=== PATIENT | male | born 1980 | race Caucasian/White ===

== ENCOUNTER 2018-01-16 16:46 | Emergency (ER) | payer OTHER ==
[~2018-01-16] VITALS: Ht 187.9 cm; Wt 102.1 kg
[~2018-01-16 16:46] MED LIST: ACIPHEX20 MG PO; AMOXICILLIN500 MG PO; AMOXIL500 MG PO; CLEOCIN HCL150 MG PO; CLEOCIN150 MG PO; CLINDAMYCIN HC300 MG PO; EES400 MG PO; HYDROCODONE BIT1 T11 PO; IBUPROFEN; MOTRIN800 MG PO; SEROQUEL100 MG PO; TRAMADOL HCL50 MG PO; TRIMOX500 MG PO; TYLENOL; VICODIN ES 7501 TAB PO; XANAX1 MG PO
== END 2018-01-16 18:53 | disposition home or self-care (01) ==
LOC: ED 16:46
DX: F41.9 Anxiety disorder, unspecified (principal); F17.200 Nicotine dependence, unspecified, uncomplicated

== ENCOUNTER 2018-02-27 12:21 | Emergency (ER) | payer OTHER ==
[~2018-02-27] VITALS: Ht 187.9 cm; Wt 104.3 kg
[2018-02-27] MEDS ORDERED: NAPROSYN500 MG PO (12:31)
[2018-02-27] MEDS ORDERED: KEFLEX500 M1 PO (12:31)
== END 2018-02-27 14:38 | disposition home or self-care (01) ==
LOC: ED 12:21
DX: S01.01XA Laceration without foreign body of scalp, initial encounter (principal); W22.8XXA Striking against or struck by other objects, initial encounter; Y93.89 Activity, other specified; Y92.89 Other specified places as the place of occurrence of the external cause; Y99.8 Other external cause status

== ENCOUNTER 2018-07-21 23:21 | Emergency (ER) | payer OTHER ==
[~2018-07-21] VITALS: Ht 185.4 cm; Wt 97.5 kg
[~2018-07-21 23:21] MED LIST changes: +KEFLEX500 M1 PO; +NAPROSYN500 MG PO
[2018-07-21 23:58] LABS: BASO # 0.1 10*3/uL (0.0-0.1); BASO % 0.2 % (0.0-1.0); HEMOGLOBIN 14.6 g/dl (14.0-18.0); LYMPH % 13.5 % (27.0-41.0); MEAN CELL VOLUME 90.1 fl (80.0-94.0); MEAN CORPUSCULAR HGB 31.3 pg (27.0-31.0); MEAN CORPUSCULAR HGB CONC 34.8 g/dl (33.0-37.0); MEAN PLATELET VOLUME 10.8 fl (9.6-12.3); MONO # 0.9 10*3/uL (0.1-1.0); MONO % 4.2 % (3.0-9.0); NEUT # 18.2 10*3/uL (2.3-7.9); NEUT % 81.7 % (47.0-73.0); PLATELET COUNT AUTOMATED 315 10*3/uL (130-400); RED BLOOD COUNT 4.66 10*6/uL (4.50-5.90); RED CELL DISTRI WIDTH 11.9 % (0-14.5); WHITE BLOOD COUNT 22.3 10*3/uL (4.8-10.8)
[2018-07-22 00:14] LABS: ALBUMIN 3.4 gm/dl (3.1-4.5); ALKALINE PHOSPHATASE 67 U/L (45-117); BUN 11 mg/dl (7-24); CHLORIDE 109 mmol/L (98-107); CREATININE 1.14 mg/dL (0.70-1.30); LIPASE 87 U/L (73-393); SGOT/AST 23 IU/L (3-35); SGPT/ALT 41 U/L (12-78); SODIUM 139 mmol/L (136-145); TOTAL PROTEIN 7.4 gm/dL (6.4-8.2)
[2018-07-22 00:50] LABS: BILIRUBIN 1+ (NEGATIVE); BLOOD 1+ (NEGATIVE); CLARITY SL CLOUDY (CLEAR); COLOR YELLOW (YELLOW); GLUCOSE NEGATIVE (NEGATIVE); KETONE 1+ (NEGATIVE); LEUKO ESTERASE NEGATIVE (NEGATIVE); NITRITE NEGATIVE (NEGATIVE); SPECIFIC GRAVITY 1.015 (1.005-1.030); UROBILINOGEN 0.2 E.U./dl (0.2-1.0)
[2018-07-22 01:16] LABS: EPITHELIAL CELLS 0-2; WBC 0-2 wbc/hpf (0-5)
[2018-07-22 01:17] LABS: BACTERIA 1+; MUCOUS TRACE
== END 2018-07-22 02:25 | disposition short-term general hospital (02) ==
LOC: ED 23:21
PROVIDERS: Emergency Medicine Emergency Medical Services
DX: N13.2 Hydronephrosis with renal and ureteral calculous obstruction (principal); N13.4 Hydroureter

== ENCOUNTER 2018-11-07 19:56 | Inpatient (IN) | payer OTHER ==
[~2018-11-07] VITALS: Ht 187.9 cm; Wt 97.2 kg
--- NOTE | ~2018-11-07 | EKG ---
[place], [place] ELECTROCARDIOGRAM REPORT NAME: DIANA OAKLEY II UNIT #: [id number] ROOM: 512 DOCTOR: IMANI DRAFT REPORT BIRTHDATE: [birth year] [facility] Test Date: 2018-11-07 Test Time: 23:36:02 Pat Name: DIANA OAKLEY Department: Room: 512 Gender: M Educational Adviser: BLAS : 1980 Requested By: MARIA T SIMON PA-C Order Number: [id number] Reading MD: Marciano Mojica MD Measurements Intervals [place] Rate: 74 P: 49 SD: 144 QRS: 10 QRSD: 110 T: 29 QT: 385 QTc: 428 Interpretive Statements Sinus rhythm Probable left ventricular hypertrophy Electronically Signed On 11-08-2018 8:10:23 PDT by Marciano Mojica MD CM:EKGRPT:ELECTROCARDIOGRAM REPORT [id number] MARIA T SIMON PA-C EPIPHANY DRAFT REPORT MARIA T SIMON PA-C
[2018-11-07 19:56] VITALS: BP 149/108
[2018-11-07 20:27] LABS: HEMOGLOBIN 14.3 g/dl (14.0-18.0); MEAN CELL VOLUME 93.5 fl (80.0-94.0); MEAN CORPUSCULAR HGB 31.8 pg (27.0-31.0); MEAN PLATELET VOLUME 10.1 fl (9.6-12.3); PLATELET COUNT AUTOMATED 397 10*3/uL (130-400); RED BLOOD COUNT 4.49 10*6/uL (4.50-5.90); RED CELL DISTRI WIDTH 12.8 % (0-14.5); WHITE BLOOD COUNT 21.4 10*3/uL (4.8-10.8)
[2018-11-07 20:36] VITALS: BP 147/80
[2018-11-07 20:48] LABS: PLATELET SUFFICIENCY NORMAL (NORMAL); TOTAL CELLS COUNTED 100 #CELLS
[2018-11-07 20:54] LABS: BILIRUBIN NEGATIVE (NEGATIVE); BLOOD NEGATIVE (NEGATIVE); CLARITY CLEAR (CLEAR); COLOR YELLOW (YELLOW); GLUCOSE NEGATIVE (NEGATIVE); KETONE NEGATIVE (NEGATIVE); LEUKO ESTERASE NEGATIVE (NEGATIVE); NITRITE NEGATIVE (NEGATIVE); PH 5.5 (5.0-9.0); SPECIFIC GRAVITY >= 1.030 (1.005-1.030); UROBILINOGEN 0.2 E.U./dl (0.2-1.0)
[2018-11-07 21:00] LABS: MUCOUS TRACE; RBC 0-2 rbc/hpf (0-2); WBC 0-2 wbc/hpf (0-5)
[2018-11-07 21:04] LABS: URINE AMPHETAMINES < 1000 (1000ng/ml); URINE BARBITURATES < 200 (200ng/ml); URINE BENZODIAZEPINES > 200 (200ng/ml); URINE CANNABINOIDS (THC) > 50 (50ng/ml); URINE COCAINE > 300 (300ng/ml); URINE METHADONE < 300 (300ng/ml); URINE OPIATES > 300 (300ng/ml); URINE PHENCYCLIDINE < 25 (25ng/ml)
[2018-11-07 21:36] LABS: ALBUMIN 3.4 gm/dl (3.1-4.5); ALKALINE PHOSPHATASE 73 U/L (45-117); BUN 9 mg/dl (7-24); CHLORIDE 104 mmol/L (98-107); CREATININE 1.06 mg/dL (0.70-1.30); LIPASE 62 U/L (73-393); POTASSIUM 3.6 mmol/L (3.5-5.1); SGOT/AST 15 IU/L (3-35); SGPT/ALT 33 U/L (12-78); SODIUM 138 mmol/L (136-145); TOTAL PROTEIN 7.7 gm/dL (6.4-8.2)
--- NOTE | 2018-11-07 22:03 | NUR ---
PT TO CT SCAN
--- NOTE | 2018-11-07 22:24 | NUR ---
REPORT FROM [facility] AT THIS TIME.PT ALERT,TALKING TO FAMILY/FRIEND IN ROOM.---BARBARA COSBY RN
[2018-11-07 22:59] VITALS: BP 132/74
[2018-11-08 00:03] VITALS: BP 119/66
[2018-11-08 00:48] LABS: TROPONIN I < 0.015 ng/ml (<0.045)
[2018-11-08 02:44] VITALS: BP 138/86
[2018-11-08 03:05] VITALS: BP 142/88
--- NOTE | 2018-11-08 03:05 | NUR ---
A 38, admitted to , under the services of SONYA De La Rosa MD with a diagnosis of PLEURAL EFFUSION. Chief complaint is LEFT FLANK/RIB PAIN STARTING 11/07 1000. Patient arrived via bed from ER. Monitor applied. Initial assessment completed. Vital signs taken and recorded. SONYA DE LA ROSA MD notified of admission to the unit. Orders received. See assessment for past medical history, medications and allergies. Patient and/or family oriented to unit. [facility] visitation policy reviewed. Clothing/patient valuable form completed. DANELLE GRUBER
--- NOTE | 2018-11-08 03:50 | NUR ---
DR NEGRON CONTACTED, ADMISSION ORDERS RECEIVED
--- NOTE | 2018-11-08 06:02 | NUR ---
c/o left flank/rib pain rating a 10. medciated with toradol per prn order. call light within reach. will monitor for effectiveness
[2018-11-08 08:00] VITALS: BP 123/83
[2018-11-08 12:00] VITALS: BP 151/93
[2018-11-08 16:00] VITALS: BP 151/87
--- NOTE | 2018-11-08 17:23 | NUR ---
PT LEFT AMA
== END 2018-11-08 17:23 | disposition left against medical advice (07) | DRG 694 ==
LOC: ED 19:56 → EDHOLD 11-08 01:20 → 5E 11-08 01:20
PROVIDERS: Physician Assistant; ADMIT Internal Medicine
DX: N13.2 Hydronephrosis with renal and ureteral calculous obstruction (principal); J90 Pleural effusion, not elsewhere classified; R65.10 Systemic inflammatory response syndrome (SIRS) of non-infectious origin without acute organ dysfunction; J98.11 Atelectasis; Z53.21 Procedure and treatment not carried out due to patient leaving prior to being seen by health care provider; R10.12 Left upper quadrant pain; D72.810 Lymphocytopenia; D72.9 Disorder of white blood cells, unspecified; F41.9 Anxiety disorder, unspecified; I10 Essential (primary) hypertension; F17.210 Nicotine dependence, cigarettes, uncomplicated; F11.10 Opioid abuse, uncomplicated; F13.10 Sedative, hypnotic or anxiolytic abuse, uncomplicated; F12.10 Cannabis abuse, uncomplicated; F14.10 Cocaine abuse, uncomplicated; R73.9 Hyperglycemia, unspecified; Z71.6 Tobacco abuse counseling; Z87.442 Personal history of urinary calculi; Z82.49 Family history of ischemic heart disease and other diseases of the circulatory system

== ENCOUNTER 2019-05-12 15:01 | Emergency (ER) | payer OTHER ==
[~2019-05-12] VITALS: Wt 104.3 kg
== END 2019-05-12 16:47 | disposition left against medical advice (07) ==
LOC: ED 15:01
DX: T40.2X1A Poisoning by other opioids, accidental (unintentional), initial encounter (principal); R11.10 Vomiting, unspecified; R40.0 Somnolence; I10 Essential (primary) hypertension; F14.10 Cocaine abuse, uncomplicated; F12.10 Cannabis abuse, uncomplicated; F11.10 Opioid abuse, uncomplicated; F17.210 Nicotine dependence, cigarettes, uncomplicated; Y92.098 Other place in other non-institutional residence as the place of occurrence of the external cause

== ENCOUNTER 2020-09-10 10:58 | Emergency (ER) | payer OTHER ==
[~2020-09-10] VITALS: Ht 187.9 cm; Wt 104.3 kg
[2020-09-10] MEDS ORDERED: AUGMENTIN 875875 MG PO (11:30)
[2020-09-10] MEDS ORDERED: IBUPROFEN600 MG PO (11:30)
== END 2020-09-10 12:05 | disposition home or self-care (01) ==
LOC: ED 10:58
DX: K08.89 Other specified disorders of teeth and supporting structures (principal); F17.200 Nicotine dependence, unspecified, uncomplicated

== ENCOUNTER 2022-07-09 18:16 | Emergency (ER) | payer OTHER ==
[~2022-07-09] VITALS: Ht 187.9 cm; Wt 104.3 kg
[~2022-07-09 18:16] MED LIST changes: +AUGMENTIN 875875 MG PO; +IBUPROFEN600 MG PO
== END 2022-07-09 21:00 | disposition home or self-care (01) ==
LOC: ED 18:16
DX: J06.9 Acute upper respiratory infection, unspecified (principal); Z87.891 Personal history of nicotine dependence

== ENCOUNTER 2022-07-12 13:37 | Emergency (ER) | payer OTHER ==
[~2022-07-12] VITALS: Ht 187.9 cm; Wt 104.3 kg
[2022-07-12] MEDS ORDERED: SUBOXONE 8 MG-1 EACH SL (17:13)
[2022-07-12] MEDS ORDERED: BUSPIRONE10 MG PO (17:14)
[2022-07-12] MEDS ORDERED: ZESTRIL,PRINIVIL5 MG PO (17:14)
[2022-07-12 17:35] LABS: BASO % 0.2 % (0.0-1.0); HEMATOCRIT 45.3 % (42.0-52.0); LYMPH # 2.5 10*3/uL (1.3-4.4); LYMPH % 11.4 % (27.0-41.0); MEAN CELL VOLUME 92.1 fl (80.0-94.0); MEAN CORPUSCULAR HGB 31.5 pg (27.0-31.0); MEAN CORPUSCULAR HGB CONC 34.2 g/dl (33.0-37.0); MEAN PLATELET VOLUME 11.1 fl (9.6-12.3); MONO # 0.6 10*3/uL (0.1-1.0); MONO % 2.7 % (3.0-9.0); NEUT # 18.6 10*3/uL (2.3-7.9); PLATELET COUNT AUTOMATED 265 10*3/uL (130-400); RED BLOOD COUNT 4.92 10*6/uL (4.50-5.90); RED CELL DISTRI WIDTH 12.1 % (0-14.5); WHITE BLOOD COUNT 21.9 10*3/uL (4.8-10.8)
[2022-07-12 17:53] LABS: ALKALINE PHOSPHATASE 59 U/L (46-116); BUN 6 mg/dl (9-23); CHLORIDE 104 mmol/L (98-107); CREATININE 0.84 mg/dL (0.70-1.30); POTASSIUM 3.8 mmol/L (3.4-5.1); SGPT/ALT 14 U/L (10-49); SODIUM 139 mmol/L (136-145); TOTAL PROTEIN 8.4 gm/dL (6.0-8.0)
[2022-07-12] MEDS ORDERED: AMOX-CLAV 875-1 EACH PO (21:05)
== END 2022-07-12 21:45 | disposition home or self-care (01) ==
LOC: ED 13:37
PROVIDERS: Emergency Medicine
DX: J03.90 Acute tonsillitis, unspecified (principal); J32.8 Other chronic sinusitis; Z79.899 Other long term (current) drug therapy; Z87.891 Personal history of nicotine dependence

== ENCOUNTER 2023-11-22 20:38 | Emergency (ER) | payer SELFPAY ==
[~2023-11-22] VITALS: Ht 187.9 cm; Wt 98.0 kg
[~2023-11-22 20:38] MED LIST changes: +AMOX-CLAV 875-1 EACH PO; +BUSPIRONE10 MG PO; +SUBOXONE 8 MG-1 EACH SL; +ZESTRIL,PRINIVIL5 MG PO
[2023-11-22 21:27] LABS: HEMATOCRIT 40.7 % (42.0-52.0); MEAN CELL VOLUME 93.3 fl (80.0-94.0); MEAN CORPUSCULAR HGB 30.5 pg (27.0-31.0); MEAN CORPUSCULAR HGB CONC 32.7 g/dl (33.0-37.0); MEAN PLATELET VOLUME 10.6 fl (9.6-12.3); PLATELET COUNT AUTOMATED 256 10*3/uL (130-400); RED BLOOD COUNT 4.36 10*6/uL (4.50-5.90); RED CELL DISTRI WIDTH 12.4 % (0-14.5); WHITE BLOOD COUNT 10.5 10*3/uL (4.8-10.8)
[2023-11-22 21:31] LABS: MANUAL DIFF REFLEX YES
[2023-11-22 21:38] LABS: ACT PARTIAL THROMBO TIME 26.1 SECONDS (20.0-32.1)
[2023-11-22 21:41] LABS: BILIRUBIN Negative (Negative); BLOOD Negative (Negative); CLARITY Clear (Clear); COLOR Yellow (Yellow); GLUCOSE Negative (Negative); KETONE Trace (Negative); LEUKO ESTERASE Negative (Negative); NITRITE Negative (Negative); UROBILINOGEN 0.2 E.U./dl (0.0-1.0)
[2023-11-22 21:45] LABS: ALKALINE PHOSPHATASE 71 U/L (46-116); BUN 9 mg/dl (9-23); CHLORIDE 105 mmol/L (98-107); POTASSIUM 3.8 mmol/L (3.4-5.1); SGPT/ALT 99 U/L (5-49); TOTAL PROTEIN 6.8 gm/dL (6.0-8.0)
[2023-11-22 21:48] LABS: URINE AMPHETAMINES Negative (1000ng/ml); URINE BARBITURATES Negative (200ng/ml); URINE BENZODIAZEPINES Negative (200ng/ml); URINE CANNABINOIDS (THC) Positive (50ng/ml); URINE COCAINE Positive (300ng/ml); URINE METHADONE Negative (300ng/ml); URINE OPIATES Negative (300ng/ml); URINE PHENCYCLIDINE Negative (25ng/ml)
[2023-11-22 21:57] LABS: BASOPHILS 1 % (0-1); OVALOCYTES FEW; PLATELET SUFFICIENCY NORMAL (NORMAL); TOTAL CELLS COUNTED 100 #CELLS
[2023-11-22 21:58] LABS: ROULEAUX SLIGHT
[2023-11-22 22:06] LABS: RBC 0-2 rbc/hpf (0-2); WBC 0-2 wbc/hpf (0-5)
== END 2023-11-22 23:17 | disposition home or self-care (01) ==
LOC: ED 20:38
PROVIDERS: Internal Medicine; Physician Assistant Medical
DX: R42 Dizziness and giddiness (principal); I10 Essential (primary) hypertension; K21.9 Gastro-esophageal reflux disease without esophagitis; F11.10 Opioid abuse, uncomplicated; F14.10 Cocaine abuse, uncomplicated; F12.10 Cannabis abuse, uncomplicated; F17.210 Nicotine dependence, cigarettes, uncomplicated; F13.10 Sedative, hypnotic or anxiolytic abuse, uncomplicated; Z87.442 Personal history of urinary calculi; Z98.890 Other specified postprocedural states